=== PATIENT | male | born 1965 | race Caucasian/White ===

== ENCOUNTER 2019-12-30 22:55 | Emergency (ER) | payer MEDICAID ==
[~2019-12-30] VITALS: Ht 177.8 cm; Wt 108.9 kg
[~2019-12-30 22:55] MED LIST: TAM04C PO
[2019-12-30 23:08] VITALS: BP 137/86
[2019-12-30 23:57] LABS: Basophils # (auto) 0.1 10 ^3/uL (0-0.2); Basophils % (auto) 1.2 % (0.0-2.0); Eosinophils # (auto) 0.4 10 ^3/uL (0-0.8); Eosinophils % (auto) 5.4 % (0.0-7.0); Hematocrit 46.7 % (41.0-53.0); Hemoglobin 15.7 g/dL (13.5-17.5); Lymphocytes # (auto) 1.8 10 ^3/uL (0.4-5.4); Lymphocytes % (auto) 26.4 % (10.0-50.0); Mean Corpuscular Hemoglobin 31.1 pg (28.0-32.0); Mean Corpuscular Hgb Conc. 33.7 g/dL (32.0-36.0); Mean Corpuscular Volume 92.4 fL (80.0-100.0); Monocytes # (auto) 0.6 10 ^3/uL (0-1.3); Monocytes % (auto) 9.2 % (0.0-12.0); Neutrophils # (auto) 3.8 10 ^3/uL (1.6-8.6); Neutrophils % (auto) 57.8 % (37.0-80.0); Platelet Count (auto) 198 10^3/uL (140-450); Red Blood Cells 5.06 10^6/uL (4.5-5.90); Red Cell Distribution Width 14.3 % (11.8-14.3); White Blood Cell 6.6 10^3/uL (4.4-10.8)
[2019-12-31 00:15] LABS: Albumin 3.7 g/dL (3.4-5.0); BUN/Creatinine Ratio 12.2; Calcium 8.6 mg/dL (8.5-10.1); Potassium 4.4 mmol/L (3.5-5.1)
[2019-12-31 00:18] LABS: Bilirubin, Total 0.3 mg/dL (0.2-1.0); Total Protein 7.4 g/dL (6.4-8.2)
== END 2019-12-31 04:27 | disposition left against medical advice (07) ==
LOC: ER 22:55
DX: R10.9 Unspecified abdominal pain (principal); Z53.21 Procedure and treatment not carried out due to patient leaving prior to being seen by health care provider
CPT/HCPCS: 36415; 74176; 80053; 85025

== ENCOUNTER 2020-02-05 18:44 | Inpatient (IN) | payer MEDICAID, OTHER ==
[~2020-02-05] VITALS: Ht 177.8 cm; Wt 115.7 kg
[2020-02-05] MEDS ORDERED: SODIUM CHLORIDE 0.9% 1,000 ML IVB ONE (19:32)
[2020-02-05 19:37] LABS: Basophils # (auto) 0.1 10 ^3/uL (0-0.2); Basophils % (auto) 1.4 % (0.0-2.0); Eosinophils # (auto) 0.3 10 ^3/uL (0-0.8); Eosinophils % (auto) 4.8 % (0.0-7.0); Lymphocytes # (auto) 1.7 10 ^3/uL (0.4-5.4); Lymphocytes % (auto) 24.6 % (10.0-50.0); Mean Corpuscular Hemoglobin 31.8 pg (28.0-32.0); Mean Corpuscular Hgb Conc. 34.7 g/dL (32.0-36.0); Mean Corpuscular Volume 91.6 fL (80.0-100.0); Monocytes # (auto) 0.8 10 ^3/uL (0-1.3); Monocytes % (auto) 10.9 % (0.0-12.0); Neutrophils % (auto) 58.3 % (37.0-80.0); Platelet Count (auto) 185 10^3/uL (140-450); Red Blood Cells 5.02 10^6/uL (4.5-5.90); Red Cell Distribution Width 14.1 % (11.8-14.3); White Blood Cell 6.9 10^3/uL (4.4-10.8)
[2020-02-05] MEDS ORDERED: HYDROmorphone HCL 2 MG/ML VL IV ONE (19:45)
[2020-02-05] MEDS ORDERED: KETOROLAC TROMETH 15 mg/ml 1ML VL IV ONE (19:45)
[2020-02-05] MEDS ORDERED: ONDANSETRON HCL 4 MG/2 ML VIAL IV ONE (19:45)
[2020-02-05 19:56] LABS: Albumin 3.5 g/dL (3.4-5.0); Calcium 8.4 mg/dL (8.5-10.1); Potassium 3.7 mmol/L (3.5-5.1)
[2020-02-05 19:59] LABS: BUN/Creatinine Ratio 9.6; Bilirubin, Total 0.4 mg/dL (0.2-1.0); Total Protein 7.4 g/dL (6.4-8.2)
[2020-02-05] MEDS ORDERED: ACETAMINOPHEN 325 MG TAB PO PRN (21:15)
[2020-02-05] MEDS ORDERED: ONDANSETRON HCL 4 MG/2 ML VIAL IV PRN (21:15)
[2020-02-05] MEDS ORDERED: DOCUSATE SOD 100 MG CAP PO PRN (21:15)
[2020-02-05] MEDS ORDERED: DEXTROSE (50%) 50ML SYRG IV PRN (21:15)
[2020-02-05 21:47] LABS: Urine Bacteria NONE SEEN /hpf (None Seen); Urine Blood 3+ /uL (Negative); Urine Mucus FEW (None Seen); Urine Specific Gravity 1.028 (1.001-1.035); Urine WBC 31 /hpf (0 - 3)
[2020-02-05] MEDS: TAMSULOSIN HYDROCHLORIDE 0.4 MG CAP PO SCH (21:50)
[2020-02-05] MEDS: LOSARTAN POTASSIUM 50 MG TAB PO SCH (21:50)
[2020-02-05] MEDS: HYDROcodone-ACET 5/325MG TAB PO PRN (21:51)
[2020-02-05] MEDS: FINASTERIDE 5 MG TAB PO SCH (21:51)
[2020-02-05 21:58] VITALS: BP 156/89
[2020-02-05] MEDS: SODIUM CHLORIDE 0.9% 1,000 ML IV SCH (22:05)
[2020-02-05] MEDS: HYDROmorphone HCL 2 MG/ML VL IV PRN (22:44)
[2020-02-05] MEDS: InsuLIN REG 1unit/0.01ml Soln (100units/ml) SC SCH (23:27)
[2020-02-05] MEDS: ACCU-CHEK COMFORT CURVE STRIP VI SCH (23:27)
[2020-02-06] MEDS ORDERED: INFLUENZA QUAD 2019-2020 0.5ml SYRG IM ONE (03:15)
[2020-02-06] MEDS: HYDROmorphone HCL 2 MG/ML VL IV PRN ×4 (03:58→21:44)
[2020-02-06] MEDS: ACCU-CHEK COMFORT CURVE STRIP VI SCH ×6 (03:59→23:04)
[2020-02-06] MEDS: InsuLIN REG 1unit/0.01ml Soln (100units/ml) SC SCH ×6 (03:59→23:04)
[2020-02-06 04:32] VITALS: BP 133/89
[2020-02-06 05:57] LABS: Basophils # (auto) 0.1 10 ^3/uL (0-0.2); Basophils % (auto) 1.3 % (0.0-2.0); Eosinophils # (auto) 0.4 10 ^3/uL (0-0.8); Eosinophils % (auto) 7.6 % (0.0-7.0); Hematocrit 42.6 % (41.0-53.0); Hemoglobin 14.7 g/dL (13.5-17.5); Lymphocytes # (auto) 1.6 10 ^3/uL (0.4-5.4); Lymphocytes % (auto) 32.1 % (10.0-50.0); Mean Corpuscular Hemoglobin 31.8 pg (28.0-32.0); Mean Corpuscular Hgb Conc. 34.6 g/dL (32.0-36.0); Mean Corpuscular Volume 92.1 fL (80.0-100.0); Monocytes # (auto) 0.6 10 ^3/uL (0-1.3); Monocytes % (auto) 11.2 % (0.0-12.0); Neutrophils # (auto) 2.4 10 ^3/uL (1.6-8.6); Neutrophils % (auto) 47.8 % (37.0-80.0); Nucleated Red Blood Cells % 0.1 %; Platelet Count (auto) 160 10^3/uL (140-450); Red Blood Cells 4.63 10^6/uL (4.5-5.90); Red Cell Distribution Width 13.8 % (11.8-14.3)
[2020-02-06 06:14] LABS: BUN/Creatinine Ratio 15.7; Potassium 4.4 mmol/L (3.5-5.1)
[2020-02-06] MEDS: HYDROcodone-ACET 5/325MG TAB PO PRN ×2 (07:28→11:41)
[2020-02-06] MEDS: SODIUM CHLORIDE 0.9% 1,000 ML IV SCH ×2 (08:15→18:47)
[2020-02-06 09:00] VITALS: BP 130/80
[2020-02-06] MEDS: FINASTERIDE 5 MG TAB PO SCH (09:45)
[2020-02-06] MEDS: LOSARTAN POTASSIUM 50 MG TAB PO SCH (09:46)
[2020-02-06 13:00] VITALS: BP 123/79
[2020-02-06] MEDS ORDERED: KETOROLAC TROMETH 30 MG/ML 1ML VIAL IV PRN (13:15)
[2020-02-06] MEDS ORDERED: cefTRIAXone 1GM/50ML D5W 50 ML IV SCH (13:30)
[2020-02-06 17:00] VITALS: BP 120/79
[2020-02-06] MEDS: TAMSULOSIN HYDROCHLORIDE 0.4 MG CAP PO SCH (18:47)
[2020-02-06] MEDS: cefTRIAXone 1GM/50ML D5W 50 ML IV SCH (18:49)
[2020-02-06 22:50] VITALS: BP 148/74
[2020-02-06] MEDS: TEMAZEPAM 15 MG CAP PO PRN (23:05)
[2020-02-07] MEDS: HYDROmorphone HCL 2 MG/ML VL IV PRN ×4 (01:56→18:52)
[2020-02-07] MEDS: SODIUM CHLORIDE 0.9% 1,000 ML IV SCH ×3 (03:13→21:36)
[2020-02-07] MEDS: InsuLIN REG 1unit/0.01ml Soln (100units/ml) SC SCH ×5 (04:00→21:00)
[2020-02-07] MEDS: ACCU-CHEK COMFORT CURVE STRIP VI SCH ×5 (04:32→21:36)
[2020-02-07 05:47] VITALS: BP 132/82
[2020-02-07] MEDS: FINASTERIDE 5 MG TAB PO SCH (09:16)
[2020-02-07] MEDS: cefTRIAXone 1GM/50ML D5W 50 ML IV SCH (09:16)
[2020-02-07] MEDS: LOSARTAN POTASSIUM 50 MG TAB PO SCH (09:16)
[2020-02-07 09:26] VITALS: BP 160/86
[2020-02-07 13:31] VITALS: BP 154/76
[2020-02-07 16:48] VITALS: BP 157/83
[2020-02-07] MEDS: TAMSULOSIN HYDROCHLORIDE 0.4 MG CAP PO SCH (16:54)
[2020-02-07] MEDS: TEMAZEPAM 15 MG CAP PO PRN (21:35)
[2020-02-07 22:00] VITALS: BP 132/75
[2020-02-08] MEDS: ACCU-CHEK COMFORT CURVE STRIP VI SCH ×4 (00:11→12:16)
[2020-02-08] MEDS: HYDROmorphone HCL 2 MG/ML VL IV PRN ×2 (00:44→12:32)
[2020-02-08 05:00] VITALS: BP 120/65
[2020-02-08] MEDS: InsuLIN REG 1unit/0.01ml Soln (100units/ml) SC SCH ×4 (05:00→12:00)
[2020-02-08 09:23] VITALS: BP 146/94
[2020-02-08] MEDS: SODIUM CHLORIDE 0.9% 1,000 ML IV SCH (09:37)
[2020-02-08] MEDS: cefTRIAXone 1GM/50ML D5W 50 ML IV SCH (09:38)
[2020-02-08] MEDS: FINASTERIDE 5 MG TAB PO SCH (09:38)
[2020-02-08] MEDS: LOSARTAN POTASSIUM 50 MG TAB PO SCH (09:38)
[2020-02-08 13:00] VITALS: BP 145/100
[2020-02-08] MEDS ORDERED: LACTULOSE 20Gm/30ML SOLN PO ONE (14:15)
== END 2020-02-08 15:40 | disposition home or self-care (01) | DRG 465 ==
LOC: ER 18:44 → UNDOADMIN 18:45 → WEST WING 18:45 → OVERFLOW 18:45
PROVIDERS: ADMIT Hospitalist; ATTEND Internal Medicine Nephrology
DX: N20.0 Calculus of kidney (principal); E11.9 Type 2 diabetes mellitus without complications; E66.9 Obesity, unspecified; M54.9 Dorsalgia, unspecified; N39.0 Urinary tract infection, site not specified; Z82.5 Family history of asthma and other chronic lower respiratory diseases; F40.240 Claustrophobia; I10 Essential (primary) hypertension; Z87.442 Personal history of urinary calculi; M25.462 Effusion, left knee
CPT/HCPCS: 36415; 73562; 74176; 80048; 80053; 81001; 82962; 83036; 85025; 87086; 96361; 96374; 96375; G0378; J0696; J1815; J2405